=== PATIENT | female | born 1990 | race Caucasian/White ===

== ENCOUNTER 2017-01-13 19:00 | Emergency (ER) | payer OTHER ==
[~2017-01-13] VITALS: Ht 152.4 cm; Wt 65.6 kg
[2017-01-13 19:08] VITALS: RESP 20; TEMP 97.6; O2SAT 100
[2017-01-13] MEDS ORDERED: AMPH1TAB29 PO (19:16)
[2017-01-13] MEDS ORDERED: ADDE20 PO (19:16)
[2017-01-13] MEDS ORDERED: SYNT88TA PO (19:16)
[2017-01-13 19:27] VITALS: BP 116/73
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
[2017-01-13] MEDS ORDERED: ORPHENADRINE INJ 60 MG/2 ML AMP IM ONE (21:00)
[2017-01-13] MEDS ORDERED: KETOROLAC TROMETHAMINE 60 MG/2 ML (IM) VIAL IM ONE (21:00)
[2017-01-13] MEDS ORDERED: CYCL5TAB PO (21:02)
[2017-01-13] MEDS ORDERED: NAPR500T2 PO (21:02)
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
== END 2017-01-13 21:21 | disposition home or self-care (01) ==
LOC: EDBD 19:00 → PHEFT 19:00
DX: M54.2 Cervicalgia (principal); E03.9 Hypothyroidism, unspecified; V89.2XXA Person injured in unspecified motor-vehicle accident, traffic, initial encounter
CPT/HCPCS: 72072; 72125; 96372; 99285; J1885; J2360